=== PATIENT | female | born 1965 | race Hispanic/Latino ===

== ENCOUNTER 2020-06-13 10:56 | Emergency (ER) | payer MEDICARE, MEDICAID ==
[2020-06-13] MEDS ORDERED: Boostrix 0.5 ML (Tdap) VIAL ONE (12:57)
[2020-06-13] MEDS ORDERED: Bacitracin 1 PK ONE (12:57)
[2020-06-13] MEDS ORDERED: Lidocaine 1% w/Epinephrine 1:100K 20 ML VIAL ONE (12:57)
== END 2020-06-13 13:47 | disposition home or self-care (01) ==
LOC: ERS 10:56
DX: S41.112A Laceration without foreign body of left upper arm, initial encounter (principal); E11.9 Type 2 diabetes mellitus without complications; E78.00 Pure hypercholesterolemia, unspecified; I10 Essential (primary) hypertension; F17.210 Nicotine dependence, cigarettes, uncomplicated; W26.8XXA Contact with other sharp object(s), not elsewhere classified, initial encounter
CPT/HCPCS: 12002; 90471; 90715